=== PATIENT | female | born 1955 | race Caucasian/White ===

== ENCOUNTER 2018-02-17 15:01 | Inpatient (IN) | payer MEDICARE, OTHER ==
--- NOTE | 2018-02-17 16:34 | PDOC ---
History of Present Illness <Apurva Cantu - Last Filed: 02/17/18 17:50> - General History Source: Family (Pt is persian speaking ) - History of Present Illness Initial Comments: Pt is Mongolian speaking. Hx obtained from pt and daughter. 62 y/o F w/ PMH of IDDM, HTN, HLD, and s/p R lateral foot wound debridment on 2017, p/w worsening pain, rash, and swelling in R leg x1wk. Pain starts below the knee and radiates down to the foot. Pain and rash have grown in size since 1 wk ago. Pt tried putting on a cream (does not remember name) that she received from her quill machine operator when she was seen 2 mo ago for the wound debridment but it did not help. Pt denies any fever, discharge from the leg, itchiness, SOB, CP, abd pain, n/v/d , recent travel, bug bites, or prolonged immobilization. Pt lives in [place] at daughter home and ambulates on her own w/o assistance, but is somewhat unsteady on her feet. Pt deneis any smoke, etoh, or IV drug use. FH: dad had stroke at 75 yo. mom has HTN and Alzheimer 02/17/18 16:22 02/17/18 16:44 Timing/Duration: 1 week Associated Symptoms: reports: rash <Humberto Estrada - Last Filed: 02/17/18 18:01> - General Chief Complaint: Wound Stated Complaint: SWOLLEN LEG Time Seen by Provider: 02/17/18 15:35 Past History <Apurva Cantu - Last Filed: 02/17/18 17:50> - Travel Traveled outside of the country in the last 30 days: No - Past Medical History Cardiac Disorders: Yes COPD: No Diabetes: Yes (on insulin) HTN: Yes Comment:: 02/17/18 16:52 Has cataracts b/l and will be going for surgery soon to remove them. In the past was told she had "fast heart beat" - Suicide/Smoking/Psychosocial Hx Smoking History: Never smoked Hx Alcohol Use: No Drug/Substance Use Hx: No <Humberto Estrada - Last Filed: 02/17/18 18:01> - Past Medical History Allergies/Adverse Reactions: Allergies Allergy/AdvReac Type Severity Reaction Status Date / Time No Known Allergies Allergy Verified 02/17/18 15:13 Home Medications: Ambulatory Orders Amlodipine Besylate 5 mg PO HS 02/17/18 Amlodipine Besylate 10 mg PO AM 02/17/18 Atorvastatin Ca [Lipitor] 40 mg PO HS 02/17/18 Gabapentin 300 mg PO DAILY 02/17/18 Insulin Aspart Prot/Insuln Asp [Novolog Mix 70-30 Flexpen Syrn] 26 unit SQ HS Insulin Aspart Prot/Insuln Asp [Novolog Mix 70-30 Flexpen Syrn] 40 unit SQ AM Losartan Potassium 100 mg PO DAILY 02/17/18 Sitagliptin Phosphate [Januvia] 100 mg PO DAILY 02/17/18 metFORMIN HCL [Metformin HCl] 500 mg PO DAILY 02/17/18 *Physical Exam - Vital Signs Last Vital Signs Temp Pulse Resp BP Pulse Ox 98.3 F 96 H 16 176/80 H 97 02/17/18 17:35 02/17/18 16:37 02/17/18 16:37 02/17/18 16:37 02/17/18 15:13 <Apurva Cantu - Last Filed: 02/17/18 17:50> - Vital Signs Last Vital Signs Temp Pulse Resp BP Pulse Ox 99.5 F 97 H 16 190/80 H 97 02/17/18 15:13 02/17/18 15:13 02/17/18 15:13 02/17/18 15:13 02/17/18 15:13 - Physical Exam Comments: 02/17/18 16:38 General: NAD HEENT: NCAT PERRL MMM, EOMI Chest: Mild basilar crackles b/l Cardio: RRR S1 S2 no m/r/g Abd: soft NTND EXT: radial and DP pulses 2+ b/l. RLE - 5x5cm rash/cellulitis on lateral RLE; mild swelling, indurated warm and TTP. no purulence or fluctuance noted. Healing stage 2/3 DM foot ulcer on R lateral foot, no drainage or erythema noted. Stage 1 ulcer near medial malleolus. LLE is grossly intact and somewhat cool to touch. No edema Neuro: AOx3. decreased sensation in feet b/l. strength grossly intact 02/17/18 17:20 02/17/18 17:27 <Humberto Estrada - Last Filed: 02/17/18 18:01> ED Treatment Course - LABORATORY CBC & Chemistry Diagram: 02/17/18 17:23 02/17/18 17:23 - ADDITIONAL ORDERS Additional order review: 02/17/18 17:23 RBC 4.13 MCV 85.4 MCHC 32.5 RDW 14.2 MPV 9.4 Neutrophils % 67.9 Lymphocytes % 22.8 Monocytes % 5.4 Eosinophils % 3.2 Basophils % 0.7 - RADIOLOGY Radiology Studies Ordered: Category Date Time Status CHEST X-RAY PORTABLE* [RAD] Stat Radiology 02/17/18 16:55 Ordered - Medications Given in the ED: ED Medications Discontinued Medications Generic Name Dose Route Start Last Admin Trade Name Freq PRN Reason Stop Dose Admin Piperacillin Sod/Tazobactam 100 mls @ 200 mls/hr 02/17/18 16:57 02/17/18 17: 22 Sod 4.5 gm/ Dextrose IVPB 02/17/18 17:26 200 mls/hr ONCE ONE Administration Protocol <Apurva Cantu - Last Filed: 02/17/18 17:50> - LABORATORY CBC & Chemistry Diagram: 02/17/18 17:23 02/17/18 17:23 <Humberto Estrada - Last Filed: 02/17/18 18:01> Medical Decision Making - Medical Decision Making 02/17/18 17:09 62 y/o F w/ PMH of IDDM, HTN, HLD, and s/p R lateral foot wound debridment on 2017, p/w worsening pain, rash, and swelling in R leg x1wk. cellulitis - Pt is DM w/ hx of recent DM R lateral foot wound debridment. also consider osteomyelitis vs DVT -IVF -IV abx zosyn/vanc for broad coverage -cbc, cmp, lactic, coag -Duplex r/o DVT -RLE and foot X-ray to r/o osteo -ID consult -Blood and wound cx HTN - 190/80....170s/80s -pt reports taking home BP meds 1 hour ago, will monitor BP Admit to inpatient for IV abx for LE cellulitis, chronic wound infection. 02/17/18 17:10 02/17/18 17:19 02/17/18 18:00 <Humberto Estrada - Last Filed: 02/17/18 18:01> *DC/Admit/Observation/Transfer - Discharge Dispostion Decision to Admit order: Yes Decision to Admit order Date/Time: Decision to Admit Order Category Date Time Status Decision to Admit to Hospital Routine Admission 02/17/18 16:57 Active <Apurva Cantu - Last Filed: 02/17/18 17:50> <Humberto Estrada - Last Filed: 02/17/18 18:01> Diagnosis at time of Disposition: Cellulitis of right lower leg - Discharge Dispostion Condition at time of disposition: Guarded - Referrals Referrals: Lyubov Boyd MD [Primary Care Provider] - - Patient Instructions - Post Discharge Activity
[2018-02-17] MEDS ORDERED: SODIUM CHLORIDE 1,000 ML IV STA (16:55)
[2018-02-17] MEDS ORDERED: VANCOMYCIN 1,500 MG in DEXTROSE 5%-WATER - 250 ML IVPB ONE (16:56)
[2018-02-17] MEDS ORDERED: PIPERACILLIN/TAZOB 4.5 GM 4.5 GM in DEXTROSE 5%-WATER 100 ML IVPB ONE (16:57)
--- NOTE | 2018-02-17 16:58 | PDOC ---
Attending Attestation - Resident Resident Name: NatalieHumberto - ED Attending Attestation I have performed the following: I have examined & evaluated the patient, The case was reviewed & discussed with the resident, I agree w/resident's findings & plan - HPI HPI: 02/17/18 18:46 Kev Salazar 62 YOF 62 y/o F w/ PMH of IDDM, HTN, HLD, and s/p R lateral foot wound debridement on 10/2017, p/w worsening pain, rash, warmth and swelling in R leg x1wk, no fevers. denies fall or trauma or bites. - Physicial Exam PE: 02/17/18 18:44 General: Well appearing, awake and alert, NAD. HEENT: NCAT, PERRL, EOMI, clear conjunctiva, anicteric, moist mucus membranes, clear oropharynx, no oral lesions.. Neck: neck supple, FROM Resp: CTAB, normal and even respirations, no respiratory distress CVS: RRR, no murmurs, 2+ peripheral pulses throughout, no peripheral edema Abdomen: soft, NTND, no peritoneal signs. Back: nontender, normal inspection and ROM MSK: (+)Right calf tenderness. COELHO x4, ROM intact. No clubbing or cyanosis. normal bulk and tone. Neuro: alert, oriented appropriately; no focal neurologic deficits. SILT, 5/5 distal and prox strength in all extrem. Skin: (+)Old healed scar/callous to right lateral foot, old scar to the right medial malleolus, focal area of erythema, warmth, and tenderness to the lateral aspect of the RLE. Cap refill <2 sec - Medical Decision Making 02/17/18 16:58 Kev Martin 62 YOF 62 y/o F w/ PMH of IDDM, HTN, HLD, and s/p R lateral foot wound debridement on 10/2017, p/w worsening pain, rash, warmth and swelling in R leg x1wk, no fevers. denies fall or trauma or bites. vitals with HR in 90s, mildly hypertensive. likely from pain. afebrile rectally. DDx osteomyelitis, cellulitis, bacteremia, chronic wound infection. High risk with chronic wound and comorbidities, diabetes. IV abx with zosyn/ vancomycin for broad coverage, IV fluids. Blood cultures obtained. no active wound drainage.. XR foot/leg to r/o osteomyelitis. Neg DVT study Labs and lytes_ wnl. lactate normal given analgesia, PO tylenol Admit for IV abx for LE cellulitis, chronic wound infection, with multiple comorbidities including poor healing and ulcer/Diabetes mellitus. d/w pt and family, made aware of impression and plan. admit to Dr. Marlow service 02/17/18 18:47 Heart Score/ECG Review - ECG Impressions Comment:: 02/17/18 17:49 EKG normal sinus rhythm, no interval abnormalities, narrow QRS, ST and T wave segments and morphology normal. Nonspecific T wave abnormalities
[2018-02-17] MEDS ORDERED: VANCOMYCIN 1 GRAM (PRE-DOCKED) 1,000 MG/250 ML BAG IVPB ONE (17:19)
[2018-02-17] MEDS ORDERED: PIPERACILLIN/TAZOB 4.5 GM 4.5 GM/100 ML BAG IVPB ONE (17:19)
[2018-02-17 17:38] LABS: BASO % 0.7 % (0-2.0); EOS % 3.2 % (0-4.5); HEMATOCRIT 35.2 % (32.4-45.2); HEMOGLOBIN 11.4 GM/dL (10.7-15.3); LYMPH % 22.8 % (8-40); MCH 27.7 pg (25.7-33.7); MCHC 32.5 g/dl (32.0-36.0); MEAN CELL VOLUME 85.4 fl (80-96); MEAN PLT VOLUME 9.4 fl (7.5-11.1); MONO % 5.4 % (3.8-10.2); NEUT % 67.9 % (42.8-82.8); PLATELET COUNT 260 K/MM3 (134-434); RBC 4.13 M/mm3 (3.60-5.2); RDW 14.2 % (11.6-15.6); WHITE BLOOD COUNT 7.3 K/mm3 (4.0-10.0)
[2018-02-17] MEDS ORDERED: ACETAMINOPHEN 325 MG TABLET (FP) PO ONE (17:49)
[2018-02-17 17:53] LABS: INR 1.03 (0.83-1.09); PROTHROMBIN TIME (PATIENT) 11.6 SEC (9.7-13.0)
[2018-02-17 18:08] LABS: ALBUMIN 3.6 g/dl (3.4-5.0); ALK PHOS 94 U/L (45-117); ANION GAP 5 MMOL/L (8-16); BILIRUBIN,TOTAL 0.3 mg/dL (0.2-1); BLOOD UREA NITROGEN 21 mg/dL (7-18); CHLORIDE 100 mmol/L (98-107); CO2 31 mmol/L (21-32); CREATININE 1.1 mg/dL (0.55-1.3); GLUCOSE,RANDOM 211 mg/dL (74-106); POTASSIUM 4.4 mmol/L (3.5-5.1); SGOT/AST 15 U/L (15-37); SGPT/ALT 21 U/L (13-61); SODIUM 136 mmol/L (136-145)
[2018-02-17] MEDS ORDERED: ACETAMINOPHEN 325 MG TABLET (FP) ONE (19:08)
--- NOTE | 2018-02-17 20:15 | HP ---
Admitting History and Physical - Primary Care Physician PCP: Cralee Marlow - Admission History of Present Illness: Pt is Slovak speaking. Hx obtained from pt and daughter. 62 y/o F w/ PMH of IDDM, HTN, HLD, and s/p R lateral foot wound debridment on 2017, p/w worsening pain, rash, and swelling in R leg x1wk. Pain starts below the knee and radiates down to the foot. Pain and rash have grown in size since 1 wk ago. Pt tried putting on a cream (does not remember name) that she received from her regulatory auditor when she was seen 2 mo ago for the wound debridment but it did not help. - Past Medical History Cardiovascular: Yes: HTN, Hyperlipdemia Endocrine: Yes: Diabetes Mellitus - Smoking History Smoking history: Never smoked - Alcohol/Substance Use Hx Alcohol Use: No Home Medications - Allergies Allergies/Adverse Reactions: Allergies Allergy/AdvReac Type Severity Reaction Status Date / Time No Known Allergies Allergy Verified 02/17/18 15:13 - Home Medications Home Medications: Ambulatory Orders Amlodipine Besylate 5 mg PO HS 02/17/18 Amlodipine Besylate 10 mg PO AM 02/17/18 Atorvastatin Ca [Lipitor] 40 mg PO HS 02/17/18 Gabapentin 300 mg PO DAILY 02/17/18 Insulin Aspart Prot/Insuln Asp [Novolog Mix 70-30 Flexpen Syrn] 26 unit SQ HS Insulin Aspart Prot/Insuln Asp [Novolog Mix 70-30 Flexpen Syrn] 40 unit SQ AM Losartan Potassium 100 mg PO DAILY 02/17/18 Sitagliptin Phosphate [Januvia] 100 mg PO DAILY 02/17/18 metFORMIN HCL [Metformin HCl] 500 mg PO DAILY 02/17/18 Physical Examination Vital Signs: Vital Signs Temperature 98.7 F 02/17/18 20:08 Pulse Rate 94 H 02/17/18 20:08 Respiratory Rate 17 02/17/18 20:08 Blood Pressure 157/68 02/17/18 20:08 O2 Sat by Pulse Oximetry (%) 99 02/17/18 20:08 Constitutional: Yes: No Distress HENT: Yes: Atraumatic Neck: Yes: Supple Cardiovascular: Yes: Regular Rate and Rhythm Respiratory: Yes: CTA Bilaterally Gastrointestinal: Yes: Normal Bowel Sounds Extremities: Yes: Other (R clive cellulitis) Edema: Yes Edema: RLE: Trace Peripheral Pulses WNL: Yes Neurological: Yes: Alert, Oriented Labs: CBC, BMP 02/17/18 17:23 02/17/18 17:23 Problem List - Problems (1) Cellulitis of right lower leg Assessment/Plan: iv abx id on board prn pain meds Code(s): L03.115 - CELLULITIS OF RIGHT LOWER LIMB (2) HTN (hypertension) Assessment/Plan: on meds stable Code(s): I10 - ESSENTIAL (PRIMARY) HYPERTENSION (3) HLD (hyperlipidemia) Assessment/Plan: on meds stable Code(s): E78.5 - HYPERLIPIDEMIA, UNSPECIFIED (4) Diabetes Assessment/Plan: on meds bgms Code(s): E11.9 - TYPE 2 DIABETES MELLITUS WITHOUT COMPLICATIONS Assessment/Plan Laboratory Tests 02/17/18 02/17/18 02/17/18 17:23 17:23 17:23 WBC 7.3 RBC 4.13 Hgb 11.4 Hct 35.2 MCV 85.4 MCH 27.7 MCHC 32.5 RDW 14.2 Plt Count 260 MPV 9.4 Absolute Neuts (auto) 5.0 Neutrophils % 67.9 Lymphocytes % 22.8 Monocytes % 5.4 Eosinophils % 3.2 Basophils % 0.7 Nucleated RBC % 0 PT with INR 11.60 INR 1.03 Sodium 136 Potassium 4.4 Chloride 100 Carbon Dioxide 31 Anion Gap 5 L BUN 21 H Creatinine 1.1 Creat Clearance w eGFR 50.01 Random Glucose 211 H Lactic Acid Calcium 10.0 Total Bilirubin 0.3 AST 15 ALT 21 Alkaline Phosphatase 94 Total Protein 8.0 Albumin 3.6 Blood Type Antibody Screen 02/17/18 02/17/18 17:23 17:23 WBC RBC Hgb Hct MCV MCH MCHC RDW Plt Count MPV Absolute Neuts (auto) Neutrophils % Lymphocytes % Monocytes % Eosinophils % Basophils % Nucleated RBC % PT with INR INR Sodium Potassium Chloride Carbon Dioxide Anion Gap BUN Creatinine Creat Clearance w eGFR Random Glucose Lactic Acid 1.3 Calcium Total Bilirubin AST ALT Alkaline Phosphatase Total Protein Albumin Blood Type O POSITIVE Antibody Screen Negative Active Medications Generic Name Dose Route Start Last Admin Trade Name Freq PRN Reason Stop Dose Admin Amlodipine Besylate 5 mg 02/17/18 22:00 Norvasc - PO HS JOVANA Atorvastatin Calcium 40 mg 02/17/18 22:00 Lipitor - PO HS [facility] Gabapentin 300 mg 02/18/18 10:00 Neurontin - PO DAILY [facility] Insulin Aspart 1 vial 02/17/18 22:00 Novolog Vial Sliding Scale - SQ ACHS [facility] Protocol Non-Formulary Medication 26 unit 02/17/18 22:00 Insulin Aspart Prot/Insuln Asp [Novolog Mix 70-30 Flexpen Syrn] SQ HS [facility] Non-Formulary Medication 40 unit 02/18/18 07:00 Insulin Aspart Prot/Insuln Asp [Novolog Mix 70-30 Flexpen Syrn] SQ AM [facility] Non-Formulary Medication 100 mg 02/18/18 10:00 Losartan Potassium [Losartan Potassium] PO DAILY JOVANA
[2018-02-17] MEDS: INSULIN SLIDING SCALE (NOVOLOG) 1 VIAL SQ SCH (22:10)
[2018-02-17] MEDS: ATORVASTATIN CA 40 MG TABLET (FP) PO SCH (22:14)
[2018-02-17] MEDS: amLODIPine BESYLATE 5 MG TABLET (FP) PO SCH (22:14)
[2018-02-17] MEDS: INSULIN (NOVOLOG MIX 70/30) 100 UNITS/ML MDV SQ SCH (22:50)
[2018-02-18] MEDS ORDERED: PNEUMOC 13-VAL CONJ-DIP CRM/PF 0.5 ML DISP.SYRIN IM ONE (00:04)
[2018-02-18] MEDS: metFORMIN HCL 500 MG TABLET (FP) PO SCH (06:35)
[2018-02-18] MEDS: sitaGLIPtin PHOSPHATE 100 MG TABLET (FP) PO SCH (06:35)
[2018-02-18] MEDS: INSULIN SLIDING SCALE (NOVOLOG) 1 VIAL SQ SCH ×4 (06:36→21:27)
[2018-02-18] MEDS: INSULIN (NOVOLOG MIX 70/30) 100 UNITS/ML MDV SQ SCH ×2 (06:38→21:27)
--- NOTE | 2018-02-18 09:35 | EKG ---
Test Reason : Blood Pressure : / mmHG Vent. Rate : 093 BPM Atrial Rate : 093 BPM P-R Int : 160 ms QRS Dur : 074 ms QT Int : 362 ms P-R-T Axes : 053 012 040 degrees QTc Int : 450 ms NORMAL SINUS RHYTHM WITH SINUS ARRHYTHMIA NORMAL ECG NO PREVIOUS ECGS AVAILABLE Confirmed by DELIA MILLIGAN MD ([id number]) on 02/18/2018 9:35:27 AM Referred By: Confirmed By:DELIA MILLIGAN MD
[2018-02-18] MEDS ORDERED: PNEUMOCOCCAL 23 VACCINE 0.5 ML VIAL IM ONE (10:00)
[2018-02-18] MEDS: LOSARTAN POTASSIUM 50 MG TABLET (FP) PO SCH (10:00)
[2018-02-18] MEDS: GABAPENTIN 300 MG CAPSULE (FP) PO SCH (10:00)
[2018-02-18] MEDS ORDERED: FLU VACCINE QUAD 60 MCG/0.5 ML (MDV 18-19) IM ONE (10:00)
[2018-02-18] MEDS ORDERED: CLINDAMYCIN 300 MG PREMIX IVPB 300 MG/50 ML BAG IVPB SCH (16:00)
[2018-02-18] MEDS ORDERED: oxyCODONE HCL 5 MG TABLET PO PRN (16:42)
[2018-02-18] MEDS ORDERED: ACETAMINOPHEN 325 MG TABLET (FP) PO PRN (16:42)
--- NOTE | 2018-02-18 16:48 | PN ---
Progress Note, Physician History of Present Illness: feeling good - Current Medication List Current Medications: Active Medications Acetaminophen (Tylenol -) 650 mg PO Q6H PRN PRN Reason: FEVER Amlodipine Besylate (Norvasc -) 5 mg PO HS [facility] Last Admin: 02/17/18 22:14 Dose: 5 mg Atorvastatin Calcium (Lipitor -) 40 mg PO HS [facility] Last Admin: 02/17/18 22:14 Dose: 40 mg Gabapentin (Neurontin -) 300 mg PO DAILY [facility] Last Admin: 02/18/18 10:00 Dose: 300 mg Heparin Sodium (Porcine) (Heparin -) 5,000 unit SQ BID [facility] Clindamycin Phosphate (Cleocin 300 Mg Premix Ivpb) 300 mg in 50 mls @ 100 mls/ hr IVPB Q8H-IV [facility]; Protocol Insulin Aspart (Novolog Mix 70/30 Vial) 26 units SQ HS [facility] Last Admin: 02/17/18 22:50 Dose: 26 units Insulin Aspart (Novolog Mix 70/30 Vial) 40 units SQ AM [facility] Last Admin: 02/18/18 06:38 Dose: 40 units Insulin Aspart (Novolog Vial Sliding Scale -) 1 vial SQ ACHS [facility]; Protocol Last Admin: 02/18/18 10:54 Dose: Not Given Losartan Potassium (Cozaar -) 100 mg PO DAILY [facility] Last Admin: 02/18/18 10:00 Dose: 100 mg Metformin HCl (Glucophage -) 500 mg PO DAILY@0700 [facility] Last Admin: 02/18/18 06:35 Dose: 500 mg Oxycodone HCl (Roxicodone -) 10 mg PO Q6H PRN PRN Reason: PAIN LEVEL 4 - 6 Sitagliptin Phosphate (Januvia -) 100 mg PO DAILY@0700 [facility] Last Admin: 02/18/18 06:35 Dose: 100 mg - Objective Vital Signs: Vital Signs Temperature 99.0 F 02/18/18 09:00 Pulse Rate 97 H 02/18/18 09:00 Respiratory Rate 18 02/18/18 09:00 Blood Pressure 130/56 L 02/18/18 09:00 O2 Sat by Pulse Oximetry (%) 99 02/17/18 20:08 Constitutional: Yes: No Distress HENT: Yes: Atraumatic Neck: Yes: Supple Cardiovascular: Yes: Regular Rate and Rhythm Respiratory: Yes: CTA Bilaterally Gastrointestinal: Yes: Normal Bowel Sounds Extremities: Yes: Other (rlex cellulitis..improving) Neurological: Yes: Alert, Oriented Labs: CBC, BMP 02/17/18 17:23 02/17/18 17:23 INR, PTT INR 1.03 (0.83-1.09) 02/17/18 17:23 Problem List - Problems (1) Cellulitis of right lower leg Assessment/Plan: iv abx id on board prn pain meds Code(s): L03.115 - CELLULITIS OF RIGHT LOWER LIMB (2) HTN (hypertension) Assessment/Plan: on meds stable Code(s): I10 - ESSENTIAL (PRIMARY) HYPERTENSION (3) HLD (hyperlipidemia) Assessment/Plan: on meds stable Code(s): E78.5 - HYPERLIPIDEMIA, UNSPECIFIED (4) Diabetes Assessment/Plan: on meds bgms Code(s): E11.9 - TYPE 2 DIABETES MELLITUS WITHOUT COMPLICATIONS
[2018-02-18] MEDS ORDERED: INSULIN (NOVOLOG) ASPART 100 UNITS/ML 10ML VIAL ONE (16:52)
[2018-02-18] MEDS: CLINDAMYCIN 300 MG PREMIX IVPB 300 MG/50 ML BAG IVPB SCH (17:01)
[2018-02-18] MEDS ORDERED: PT OWN MED DRAWER 7, Y5N ONE (17:28)
[2018-02-18] MEDS: HEPARIN NA (PORCINE) 5,000 UNITS/ML 1ML VIAL SQ SCH (21:21)
[2018-02-18] MEDS: ATORVASTATIN CA 40 MG TABLET (FP) PO SCH (21:21)
[2018-02-18] MEDS: amLODIPine BESYLATE 5 MG TABLET (FP) PO SCH (21:21)
[2018-02-19] MEDS: CLINDAMYCIN 300 MG PREMIX IVPB 300 MG/50 ML BAG IVPB SCH ×3 (01:31→17:28)
[2018-02-19] MEDS: sitaGLIPtin PHOSPHATE 100 MG TABLET (FP) PO SCH (06:35)
[2018-02-19] MEDS: INSULIN (NOVOLOG MIX 70/30) 100 UNITS/ML MDV SQ SCH ×2 (06:35→21:35)
[2018-02-19] MEDS: metFORMIN HCL 500 MG TABLET (FP) PO SCH (06:35)
[2018-02-19] MEDS: INSULIN SLIDING SCALE (NOVOLOG) 1 VIAL SQ SCH ×4 (06:36→21:34)
[2018-02-19] MEDS ORDERED: INSULIN (NOVOLOG) ASPART 100 UNITS/ML 10ML VIAL ONE ×3 (06:41→18:57)
[2018-02-19] MEDS: HEPARIN NA (PORCINE) 5,000 UNITS/ML 1ML VIAL SQ SCH ×2 (10:40→21:35)
[2018-02-19] MEDS: GABAPENTIN 300 MG CAPSULE (FP) PO SCH (10:40)
[2018-02-19] MEDS: LOSARTAN POTASSIUM 50 MG TABLET (FP) PO SCH (10:40)
[2018-02-19] MEDS ORDERED: PT OWN MED DRAWER 7, Y5N ONE (17:25)
--- NOTE | 2018-02-19 18:49 | PN ---
Progress Note, Physician History of Present Illness: feeling good - Current Medication List Current Medications: Active Medications Acetaminophen (Tylenol -) 650 mg PO Q6H PRN PRN Reason: FEVER Amlodipine Besylate (Norvasc -) 5 mg PO HS [facility] Last Admin: 02/18/18 21:21 Dose: 5 mg Atorvastatin Calcium (Lipitor -) 40 mg PO HS [facility] Last Admin: 02/18/18 21:21 Dose: 40 mg Gabapentin (Neurontin -) 300 mg PO DAILY [facility] Last Admin: 02/19/18 10:40 Dose: 300 mg Heparin Sodium (Porcine) (Heparin -) 5,000 unit SQ BID [facility] Last Admin: 02/19/18 10:40 Dose: 5,000 unit Clindamycin Phosphate (Cleocin 300 Mg Premix Ivpb) 300 mg in 50 mls @ 100 mls/ hr IVPB Q8H-IV [facility]; Protocol Last Admin: 02/19/18 17:28 Dose: 100 mls/hr Insulin Aspart (Novolog Mix 70/30 Vial) 26 units SQ HS [facility] Last Admin: 02/18/18 21:27 Dose: Not Given Insulin Aspart (Novolog Mix 70/30 Vial) 40 units SQ AM [facility] Last Admin: 02/19/18 06:35 Dose: 40 units Insulin Aspart (Novolog Vial Sliding Scale -) 1 vial SQ ACHS [facility]; Protocol Last Admin: 02/19/18 17:27 Dose: 10 units Losartan Potassium (Cozaar -) 100 mg PO DAILY [facility] Last Admin: 02/19/18 10:40 Dose: 100 mg Metformin HCl (Glucophage -) 500 mg PO DAILY@0700 [facility] Last Admin: 02/19/18 06:35 Dose: 500 mg Oxycodone HCl (Roxicodone -) 10 mg PO Q6H PRN PRN Reason: PAIN LEVEL 4 - 6 Last Admin: 02/18/18 16:57 Dose: 10 mg Sitagliptin Phosphate (Januvia -) 100 mg PO DAILY@0700 [facility] Last Admin: 02/19/18 06:35 Dose: 100 mg - Objective Vital Signs: Vital Signs Temperature 98.7 F 02/19/18 06:00 Pulse Rate 95 H 02/19/18 06:00 Respiratory Rate 20 02/19/18 06:00 Blood Pressure 143/62 02/19/18 06:00 O2 Sat by Pulse Oximetry (%) 99 02/17/18 20:08 HENT: Yes: Atraumatic Neck: Yes: Supple Cardiovascular: Yes: Regular Rate and Rhythm Respiratory: Yes: CTA Bilaterally Gastrointestinal: Yes: Normal Bowel Sounds Extremities: Yes: Other (rle cellulitis resolving) Edema: Yes Edema: RLE: Trace Peripheral Pulses WNL: Yes Neurological: Yes: Alert, Oriented Labs: CBC, BMP 02/17/18 17:23 02/17/18 17:23 INR, PTT INR 1.03 (0.83-1.09) 02/17/18 17:23 Problem List - Problems (1) Cellulitis of right lower leg Assessment/Plan: iv abx id on board..need to know when to switch to po prn pain meds Code(s): L03.115 - CELLULITIS OF RIGHT LOWER LIMB (2) HTN (hypertension) Assessment/Plan: on meds stable Code(s): I10 - ESSENTIAL (PRIMARY) HYPERTENSION (3) HLD (hyperlipidemia) Assessment/Plan: on meds stable Code(s): E78.5 - HYPERLIPIDEMIA, UNSPECIFIED (4) Diabetes Assessment/Plan: on meds bgms Code(s): E11.9 - TYPE 2 DIABETES MELLITUS WITHOUT COMPLICATIONS
[2018-02-19] MEDS: amLODIPine BESYLATE 5 MG TABLET (FP) PO SCH (21:35)
[2018-02-19] MEDS: ATORVASTATIN CA 40 MG TABLET (FP) PO SCH (21:35)
[2018-02-20] MEDS ORDERED: PT OWN MED DRAWER 7, Y5N ONE ×2 (02:31→09:20)
[2018-02-20] MEDS: CLINDAMYCIN 300 MG PREMIX IVPB 300 MG/50 ML BAG IVPB SCH ×3 (02:36→17:25)
--- NOTE | 2018-02-20 05:48 | CON.ID ---
Consult Consult Specialty:: infectious diseases Referred by:: Reason for Consultation:: cellulitis of the right with boils - History of Present Illness Chief Complaint: pain and swelling of the right leg and redness History of Present Illness: Pt is Brazilian speaking. Hx obtained from pt and daughter. 62 y/o F w/ PMH of IDDM, HTN, HLD, and s/p R lateral foot wound debridment on 2017, p/w worsening pain, rash, and swelling in R leg x1wk. Pain starts below the knee and radiates down to the foot. Pain and rash have grown in size since 1 wk ago. Pt tried putting on a cream (does not remember name) that she received from her hotel director when she was seen 2 mo ago for the wound debridment but it did not help. - History Source History Provided By: Patient, Family Member Limitations to Obtaining History: Language Barrier - Past Medical History Cardio/Vascular: Yes: HTN, Hyperlipdemia Endocrine: Yes: Diabetes Mellitus - Alcohol/Substance Use Hx Alcohol Use: No - Smoking History Smoking history: Never smoked Have you smoked in the past 12 months: No Home Medications - Allergies Allergies/Adverse Reactions: Allergies Allergy/AdvReac Type Severity Reaction Status Date / Time No Known Allergies Allergy Verified 02/17/18 15:13 - Home Medications Home Medications: Ambulatory Orders Amlodipine Besylate 5 mg PO HS 02/17/18 Amlodipine Besylate 10 mg PO AM 02/17/18 Atorvastatin Ca [Lipitor] 40 mg PO HS 02/17/18 Gabapentin 300 mg PO DAILY 02/17/18 Insulin Aspart Prot/Insuln Asp [Novolog Mix 70-30 Flexpen Syrn] 26 unit SQ HS Insulin Aspart Prot/Insuln Asp [Novolog Mix 70-30 Flexpen Syrn] 40 unit SQ AM Losartan Potassium 100 mg PO DAILY 02/17/18 Sitagliptin Phosphate [Januvia] 100 mg PO DAILY 02/17/18 metFORMIN HCL [Metformin HCl] 500 mg PO DAILY 02/17/18 Review of Systems - Review of Systems Constitutional: reports: No Symptoms Eyes: reports: No Symptoms HENT: reports: No Symptoms Neck: reports: No Symptoms Cardiovascular: reports: No Symptoms Respiratory: reports: No Symptoms Gastrointestinal: reports: No Symptoms Genitourinary: reports: No Symptoms Musculoskeletal: reports: Other Integumentary: reports: Change in Color, Erythema, Other (wound/boil) Neurological: reports: No Symptoms Endocrine: reports: No Symptoms Hematology/Lymphatic: reports: No Symptoms Psychiatric: reports: No Symptoms Physical Exam Vital Signs: Vital Signs Temperature 98.7 F 02/19/18 18:00 Pulse Rate 100 H 02/19/18 18:00 Respiratory Rate 20 02/19/18 18:00 Blood Pressure 157/85 02/19/18 18:00 O2 Sat by Pulse Oximetry (%) 99 02/17/18 20:08 Constitutional: Yes: No Distress, Calm Eyes: Yes: Conjunctiva Clear Neck: Yes: Supple, Trachea Midline Cardiovascular: Yes: Regular Rate and Rhythm Respiratory: Yes: Regular, CTA Bilaterally Gastrointestinal: Yes: Normal Bowel Sounds, Soft Musculoskeletal: Yes: WNL Extremities: Yes: Other (rt leg cellulitis with boil) Wound/Incision: Yes: Open to air Neurological: Yes: Alert, Oriented Labs: CBC, BMP 02/17/18 17:23 02/19/18 21:40 Imaging - Results Chest X-ray: Report Reviewed, Image Reviewed X-ray: Report Reviewed, Image Reviewed Assessment/Plan Problem List - Problems (1) Cellulitis of right lower leg Code(s): L03.115 - CELLULITIS OF RIGHT LOWER LIMB (2) HTN (hypertension) Code(s): I10 - ESSENTIAL (PRIMARY) HYPERTENSION (3) HLD (hyperlipidemia) Code(s): E78.5 - HYPERLIPIDEMIA, UNSPECIFIED 4 r/o mrsa of the leg wound plan will start patient on clinda await for cx reports rest as per the team
--- NOTE | 2018-02-20 05:55 | PN ---
Progress Note, Physician History of Present Illness: patient doing well no complaints still awaiting results of cx - Current Medication List Current Medications: Active Medications Acetaminophen (Tylenol -) 650 mg PO Q6H PRN PRN Reason: FEVER Amlodipine Besylate (Norvasc -) 5 mg PO HS [facility] Last Admin: 02/19/18 21:35 Dose: 5 mg Atorvastatin Calcium (Lipitor -) 40 mg PO HS [facility] Last Admin: 02/19/18 21:35 Dose: 40 mg Gabapentin (Neurontin -) 300 mg PO DAILY [facility] Last Admin: 02/19/18 10:40 Dose: 300 mg Heparin Sodium (Porcine) (Heparin -) 5,000 unit SQ BID [facility] Last Admin: 02/19/18 21:35 Dose: 5,000 unit Clindamycin Phosphate (Cleocin 300 Mg Premix Ivpb) 300 mg in 50 mls @ 100 mls/ hr IVPB Q8H-IV [facility]; Protocol Last Admin: 02/20/18 02:36 Dose: 100 mls/hr Insulin Aspart (Novolog Mix 70/30 Vial) 26 units SQ HS [facility] Last Admin: 02/19/18 21:35 Dose: 26 units Insulin Aspart (Novolog Mix 70/30 Vial) 40 units SQ AM [facility] Last Admin: 02/19/18 06:35 Dose: 40 units Insulin Aspart (Novolog Vial Sliding Scale -) 1 vial SQ ACHS [facility]; Protocol Last Admin: 02/19/18 21:34 Dose: 14 units Losartan Potassium (Cozaar -) 100 mg PO DAILY [facility] Last Admin: 02/19/18 10:40 Dose: 100 mg Metformin HCl (Glucophage -) 500 mg PO DAILY@0700 [facility] Last Admin: 02/19/18 06:35 Dose: 500 mg Oxycodone HCl (Roxicodone -) 10 mg PO Q6H PRN PRN Reason: PAIN LEVEL 4 - 6 Last Admin: 02/18/18 16:57 Dose: 10 mg Sitagliptin Phosphate (Januvia -) 100 mg PO DAILY@0700 [facility] Last Admin: 02/19/18 06:35 Dose: 100 mg - Objective Vital Signs: Vital Signs Temperature 98.7 F 02/20/18 05:51 Pulse Rate 93 H 02/20/18 05:51 Respiratory Rate 20 02/20/18 05:51 Blood Pressure 157/75 02/20/18 05:51 O2 Sat by Pulse Oximetry (%) 99 02/17/18 20:08 Constitutional: Yes: No Distress, Calm Cardiovascular: Yes: Regular Rate and Rhythm Respiratory: Yes: Regular, CTA Bilaterally Gastrointestinal: Yes: Normal Bowel Sounds, Soft Musculoskeletal: Yes: WNL Extremities: Yes: Other Integumentary: Yes: Erythema (improving) Wound/Incision: Yes: Clean/Dry Psychiatric: Yes: Alert, Oriented Labs: CBC, BMP 02/17/18 17:23 02/19/18 21:40 INR, PTT INR 1.03 (0.83-1.09) 02/17/18 17:23 Assessment/Plan Problem List - Problems (1) Cellulitis of right lower leg Code(s): L03.115 - CELLULITIS OF RIGHT LOWER LIMB (2) HTN (hypertension) Code(s): I10 - ESSENTIAL (PRIMARY) HYPERTENSION (3) HLD (hyperlipidemia) Code(s): E78.5 - HYPERLIPIDEMIA, UNSPECIFIED 4 r/o mrsa of the leg wound plan continue clinda await for cx reports rest as per the team improving
[2018-02-20] MEDS: sitaGLIPtin PHOSPHATE 100 MG TABLET (FP) PO SCH (06:35)
[2018-02-20] MEDS: metFORMIN HCL 500 MG TABLET (FP) PO SCH (06:35)
[2018-02-20] MEDS: INSULIN SLIDING SCALE (NOVOLOG) 1 VIAL SQ SCH ×4 (06:40→21:48)
[2018-02-20] MEDS: INSULIN (NOVOLOG MIX 70/30) 100 UNITS/ML MDV SQ SCH ×2 (06:40→21:49)
[2018-02-20] MEDS ORDERED: INSULIN (NOVOLOG) ASPART 100 UNITS/ML 10ML VIAL ONE (06:44)
[2018-02-20] MEDS: HEPARIN NA (PORCINE) 5,000 UNITS/ML 1ML VIAL SQ SCH ×2 (09:32→21:48)
[2018-02-20] MEDS: LOSARTAN POTASSIUM 50 MG TABLET (FP) PO SCH (09:33)
[2018-02-20] MEDS: GABAPENTIN 300 MG CAPSULE (FP) PO SCH (09:33)
--- NOTE | 2018-02-20 14:22 | DS ---
Physical Examination Vital Signs: Vital Signs Temperature 98.7 F 02/20/18 08:00 Pulse Rate 93 H 02/20/18 08:00 Respiratory Rate 16 02/20/18 08:00 Blood Pressure 133/76 02/20/18 08:00 O2 Sat by Pulse Oximetry (%) 99 02/17/18 20:08 Labs: CBC, BMP 02/17/18 17:23 02/19/18 21:40 Discharge Summary Reason For Visit: CELLULITIS OF RIGHT LOWER LEG Current Active Problems Cellulitis of right lower leg (Acute) HLD (hyperlipidemia) (Acute) HTN (hypertension) (Acute) Condition: Guarded - Instructions Referrals: Lyubov Boyd MD [Primary Care Provider] - - Home Medications Comprehensive Discharge Medication List: Ambulatory Orders Amlodipine Besylate 5 mg PO HS 02/17/18 Amlodipine Besylate 10 mg PO AM 02/17/18 Atorvastatin Ca [Lipitor] 40 mg PO HS 02/17/18 Gabapentin 300 mg PO DAILY 02/17/18 Insulin Aspart Prot/Insuln Asp [Novolog Mix 70-30 Flexpen Syrn] 26 unit SQ HS Insulin Aspart Prot/Insuln Asp [Novolog Mix 70-30 Flexpen Syrn] 40 unit SQ AM Losartan Potassium 100 mg PO DAILY 02/17/18 Sitagliptin Phosphate [Januvia] 100 mg PO DAILY 02/17/18 metFORMIN HCL [Metformin HCl] 500 mg PO DAILY 02/17/18
[2018-02-20 15:18] LABS: BASO % 0.5 % (0-2.0); HEMATOCRIT 31.9 % (32.4-45.2); HEMOGLOBIN 10.5 GM/dL (10.7-15.3); LYMPH % 24.9 % (8-40); MCH 28.2 pg (25.7-33.7); MCHC 32.9 g/dl (32.0-36.0); MEAN CELL VOLUME 85.7 fl (80-96); MEAN PLT VOLUME 9.9 fl (7.5-11.1); MONO % 6.3 % (3.8-10.2); NEUT % 61.3 % (42.8-82.8); PLATELET COUNT 283 K/MM3 (134-434); RBC 3.73 M/mm3 (3.60-5.2); RDW 14.1 % (11.6-15.6); WHITE BLOOD COUNT 6.9 K/mm3 (4.0-10.0)
--- NOTE | 2018-02-20 15:51 | PN ---
Progress Note, Physician History of Present Illness: Pt states she feels well. Reports less Rt leg pain. Has no specific complaints. Daughter at bedside. - Current Medication List Current Medications: Active Medications Acetaminophen (Tylenol -) 650 mg PO Q6H PRN PRN Reason: FEVER Amlodipine Besylate (Norvasc -) 5 mg PO HS [facility] Last Admin: 02/19/18 21:35 Dose: 5 mg Atorvastatin Calcium (Lipitor -) 40 mg PO HS [facility] Last Admin: 02/19/18 21:35 Dose: 40 mg Gabapentin (Neurontin -) 300 mg PO DAILY [facility] Last Admin: 02/20/18 09:33 Dose: 300 mg Heparin Sodium (Porcine) (Heparin -) 5,000 unit SQ BID [facility] Last Admin: 02/20/18 09:32 Dose: 5,000 unit Clindamycin Phosphate (Cleocin 300 Mg Premix Ivpb) 300 mg in 50 mls @ 100 mls/ hr IVPB Q8H-IV [facility]; Protocol Last Admin: 02/20/18 09:33 Dose: 100 mls/hr Insulin Aspart (Novolog Mix 70/30 Vial) 26 units SQ HS [facility] Last Admin: 02/19/18 21:35 Dose: 26 units Insulin Aspart (Novolog Mix 70/30 Vial) 40 units SQ AM [facility] Last Admin: 02/20/18 06:40 Dose: 40 units Insulin Aspart (Novolog Vial Sliding Scale -) 1 vial SQ ACHS [facility]; Protocol Last Admin: 02/20/18 12:02 Dose: 2 units Losartan Potassium (Cozaar -) 100 mg PO DAILY [facility] Last Admin: 02/20/18 09:33 Dose: 100 mg Metformin HCl (Glucophage -) 500 mg PO DAILY@0700 [facility] Last Admin: 02/20/18 06:35 Dose: 500 mg Oxycodone HCl (Roxicodone -) 10 mg PO Q6H PRN PRN Reason: PAIN LEVEL 4 - 6 Last Admin: 02/18/18 16:57 Dose: 10 mg Sitagliptin Phosphate (Januvia -) 100 mg PO DAILY@0700 [facility] Last Admin: 02/20/18 06:35 Dose: 100 mg - Objective Vital Signs: Vital Signs Temperature 98.5 F 02/20/18 14:35 Pulse Rate 93 H 02/20/18 14:35 Respiratory Rate 16 02/20/18 14:35 Blood Pressure 143/72 02/20/18 14:35 O2 Sat by Pulse Oximetry (%) 99 02/17/18 20:08 Constitutional: Yes: No Distress, Calm Cardiovascular: Yes: Regular Rate and Rhythm Respiratory: Yes: Regular Gastrointestinal: Yes: Normal Bowel Sounds, Soft Musculoskeletal: Yes: WNL Extremities: Yes: Erythema (Rt leg erythema/mild induration, no fluctuance or drainage) Neurological: Yes: Alert, Oriented Labs: CBC, BMP 02/20/18 14:50 INR, PTT INR 1.03 (0.83-1.09) 02/17/18 17:23 Microbiology 02/17/18 06:40 Drainage (Swab) Gram Stain - Final 02/17/18 06:40 Drainage (Swab) Wound Culture - Preliminary Staphylococcus Epidermidis Presumptive Mrsa (Pbp2a Pos) 02/17/18 17:20 Blood - Peripheral Venous Blood Culture - Preliminary NO GROWTH OBTAINED AFTER 48 HOURS, INCUBATION TO CONTINUE FOR 3 DAYS. 02/17/18 17:23 Blood - Peripheral Venous Blood Culture - Preliminary NO GROWTH OBTAINED AFTER 48 HOURS, INCUBATION TO CONTINUE FOR 3 DAYS. Assessment/Plan Rt leg cellulitis -- wound culture results noted, +MRSA -- f/u susceptibility report, continue clindamycin for now prior to switch to oral antibiotics -- appears to be clinically improving
[2018-02-20 16:22] LABS: ALBUMIN 3.1 g/dl (3.4-5.0); ALK PHOS 87 U/L (45-117); ANION GAP 9 MMOL/L (8-16); BILIRUBIN,TOTAL 0.2 mg/dL (0.2-1); BLOOD UREA NITROGEN 24 mg/dL (7-18); CALCIUM 9.3 mg/dL (8.5-10.1); CHLORIDE 104 mmol/L (98-107); CO2 28 mmol/L (21-32); CREATININE 1.1 mg/dL (0.55-1.3); GLUCOSE,RANDOM 150 mg/dL (74-106); SGOT/AST 15 U/L (15-37); SGPT/ALT 17 U/L (13-61); SODIUM 142 mmol/L (136-145); TOT PROT 6.8 g/dl (6.4-8.2)
--- NOTE | 2018-02-20 19:01 | PN ---
Progress Note, Physician History of Present Illness: doing well - Current Medication List Current Medications: Active Medications Acetaminophen (Tylenol -) 650 mg PO Q6H PRN PRN Reason: FEVER Amlodipine Besylate (Norvasc -) 5 mg PO HS [facility] Last Admin: 02/19/18 21:35 Dose: 5 mg Atorvastatin Calcium (Lipitor -) 40 mg PO HS [facility] Last Admin: 02/19/18 21:35 Dose: 40 mg Gabapentin (Neurontin -) 300 mg PO DAILY [facility] Last Admin: 02/20/18 09:33 Dose: 300 mg Heparin Sodium (Porcine) (Heparin -) 5,000 unit SQ BID [facility] Last Admin: 02/20/18 09:32 Dose: 5,000 unit Clindamycin Phosphate (Cleocin 300 Mg Premix Ivpb) 300 mg in 50 mls @ 100 mls/ hr IVPB Q8H-IV [facility]; Protocol Last Admin: 02/20/18 17:25 Dose: 100 mls/hr Insulin Aspart (Novolog Mix 70/30 Vial) 26 units SQ HS [facility] Last Admin: 02/19/18 21:35 Dose: 26 units Insulin Aspart (Novolog Mix 70/30 Vial) 40 units SQ AM [facility] Last Admin: 02/20/18 06:40 Dose: 40 units Insulin Aspart (Novolog Vial Sliding Scale -) 1 vial SQ ACHS [facility]; Protocol Last Admin: 02/20/18 17:19 Dose: 8 units Losartan Potassium (Cozaar -) 100 mg PO DAILY [facility] Last Admin: 02/20/18 09:33 Dose: 100 mg Metformin HCl (Glucophage -) 500 mg PO DAILY@0700 [facility] Last Admin: 02/20/18 06:35 Dose: 500 mg Oxycodone HCl (Roxicodone -) 10 mg PO Q6H PRN PRN Reason: PAIN LEVEL 4 - 6 Last Admin: 02/18/18 16:57 Dose: 10 mg Sitagliptin Phosphate (Januvia -) 100 mg PO DAILY@0700 [facility] Last Admin: 02/20/18 06:35 Dose: 100 mg - Objective Vital Signs: Vital Signs Temperature 98.5 F 02/20/18 14:35 Pulse Rate 93 H 02/20/18 14:35 Respiratory Rate 16 02/20/18 14:35 Blood Pressure 143/72 02/20/18 14:35 O2 Sat by Pulse Oximetry (%) 99 02/17/18 20:08 Constitutional: Yes: No Distress HENT: Yes: Atraumatic Neck: Yes: Supple Cardiovascular: Yes: Regular Rate and Rhythm Respiratory: Yes: CTA Bilaterally Gastrointestinal: Yes: Normal Bowel Sounds Extremities: Yes: Other (rlex cellulitis resolving) Edema: Yes Edema: RLE: Trace Peripheral Pulses WNL: Yes Neurological: Yes: Alert, Oriented Labs: CBC, BMP 02/20/18 14:50 02/20/18 14:50 INR, PTT INR 1.03 (0.83-1.09) 02/17/18 17:23 Problem List - Problems (1) Cellulitis of right lower leg Assessment/Plan: iv abx id on board..need to know when to switch to po Code(s): L03.115 - CELLULITIS OF RIGHT LOWER LIMB (2) HTN (hypertension) Assessment/Plan: on meds stable Code(s): I10 - ESSENTIAL (PRIMARY) HYPERTENSION (3) HLD (hyperlipidemia) Assessment/Plan: on meds stable Code(s): E78.5 - HYPERLIPIDEMIA, UNSPECIFIED (4) Diabetes Assessment/Plan: on meds bgms Code(s): E11.9 - TYPE 2 DIABETES MELLITUS WITHOUT COMPLICATIONS
[2018-02-20] MEDS: amLODIPine BESYLATE 5 MG TABLET (FP) PO SCH (21:48)
[2018-02-20] MEDS: ATORVASTATIN CA 40 MG TABLET (FP) PO SCH (21:48)
[2018-02-21] MEDS ORDERED: PT OWN MED DRAWER 7, Y5N ONE (02:32)
[2018-02-21] MEDS: CLINDAMYCIN 300 MG PREMIX IVPB 300 MG/50 ML BAG IVPB SCH ×2 (02:36→09:48)
[2018-02-21] MEDS: INSULIN SLIDING SCALE (NOVOLOG) 1 VIAL SQ SCH ×4 (06:41→21:56)
[2018-02-21] MEDS: sitaGLIPtin PHOSPHATE 100 MG TABLET (FP) PO SCH (06:41)
[2018-02-21] MEDS: INSULIN (NOVOLOG MIX 70/30) 100 UNITS/ML MDV SQ SCH ×2 (06:41→21:55)
[2018-02-21] MEDS: metFORMIN HCL 500 MG TABLET (FP) PO SCH (06:42)
[2018-02-21] MEDS ORDERED: INSULIN (NOVOLOG) ASPART 100 UNITS/ML 10ML VIAL ONE ×3 (06:45→21:39)
[2018-02-21] MEDS: HEPARIN NA (PORCINE) 5,000 UNITS/ML 1ML VIAL SQ SCH ×2 (09:52→21:57)
[2018-02-21] MEDS: LOSARTAN POTASSIUM 50 MG TABLET (FP) PO SCH (09:52)
[2018-02-21] MEDS: GABAPENTIN 300 MG CAPSULE (FP) PO SCH (09:52)
--- NOTE | 2018-02-21 16:59 | PN ---
Progress Note, Physician History of Present Illness: Pt is alert. Denies current RLE pain. Has been tolerating antibiotics, afebrile. Wound culture results noted. - Current Medication List Current Medications: Active Medications Acetaminophen (Tylenol -) 650 mg PO Q6H PRN PRN Reason: FEVER Amlodipine Besylate (Norvasc -) 5 mg PO HS [facility] Last Admin: 02/20/18 21:48 Dose: 5 mg Atorvastatin Calcium (Lipitor -) 40 mg PO HS [facility] Last Admin: 02/20/18 21:48 Dose: 40 mg Gabapentin (Neurontin -) 300 mg PO DAILY [facility] Last Admin: 02/21/18 09:52 Dose: 300 mg Heparin Sodium (Porcine) (Heparin -) 5,000 unit SQ BID [facility] Last Admin: 02/21/18 09:52 Dose: 5,000 unit Clindamycin Phosphate (Cleocin 300 Mg Premix Ivpb) 300 mg in 50 mls @ 100 mls/ hr IVPB Q8H-IV [facility]; Protocol Last Admin: 02/21/18 09:48 Dose: 100 mls/hr Insulin Aspart (Novolog Mix 70/30 Vial) 26 units SQ HS [facility] Last Admin: 02/20/18 21:49 Dose: 26 units Insulin Aspart (Novolog Mix 70/30 Vial) 40 units SQ AM [facility] Last Admin: 02/21/18 06:41 Dose: 40 units Insulin Aspart (Novolog Vial Sliding Scale -) 1 vial SQ ACHS [facility]; Protocol Last Admin: 02/21/18 12:27 Dose: Not Given Losartan Potassium (Cozaar -) 100 mg PO DAILY [facility] Last Admin: 02/21/18 09:52 Dose: 100 mg Metformin HCl (Glucophage -) 500 mg PO DAILY@0700 [facility] Last Admin: 02/21/18 06:42 Dose: 500 mg Sitagliptin Phosphate (Januvia -) 100 mg PO DAILY@0700 [facility] Last Admin: 02/21/18 06:41 Dose: 100 mg - Objective Vital Signs: Vital Signs Temperature 97.4 F L 02/21/18 03:37 Pulse Rate 87 02/21/18 10:00 Respiratory Rate 20 02/21/18 10:00 Blood Pressure 140/70 02/21/18 10:00 O2 Sat by Pulse Oximetry (%) 99 02/17/18 20:08 Constitutional: Yes: No Distress, Calm Cardiovascular: Yes: Regular Rate and Rhythm Respiratory: Yes: CTA Bilaterally Gastrointestinal: Yes: Normal Bowel Sounds, Soft, Abdomen, Obese Genitourinary: Yes: WNL Integumentary: Yes: Erythema (RLE erythema/induration/mild warmth and tenderness , no fluctuance/drainage noted) Neurological: Yes: Alert, Oriented Labs: CBC, BMP 02/20/18 14:50 02/20/18 14:50 INR, PTT INR 1.03 (0.83-1.09) 02/17/18 17:23 Microbiology 02/17/18 06:40 Drainage (Swab) Gram Stain - Final 02/17/18 06:40 Drainage (Swab) Wound Culture - Final Staphylococcus Epidermidis Mr S Aureus 02/17/18 17:20 Blood - Peripheral Venous Blood Culture - Preliminary NO GROWTH OBTAINED AFTER 72 HOURS, INCUBATION TO CONTINUE FOR 2 DAYS. 02/17/18 17:23 Blood - Peripheral Venous Blood Culture - Preliminary NO GROWTH OBTAINED AFTER 72 HOURS, INCUBATION TO CONTINUE FOR 2 DAYS. Assessment/Plan Rt leg cellulitis -- still with some induration -- wound culture final results noted: MRSA, resistant to clindamycin/bactrim/ tetracycline -- d/c Clindamycin, start IV Vancomycin for now, monitor renal function -- continue monitor site
[2018-02-21] MEDS ORDERED: VANCOMYCIN 1,250 MG in DEXTROSE 5%-WATER - 250 ML IVPB SCH (18:00)
--- NOTE | 2018-02-21 20:33 | PN ---
Progress Note, Physician History of Present Illness: doing well - Current Medication List Current Medications: Active Medications Acetaminophen (Tylenol -) 650 mg PO Q6H PRN PRN Reason: FEVER Amlodipine Besylate (Norvasc -) 5 mg PO HS [facility] Last Admin: 02/20/18 21:48 Dose: 5 mg Atorvastatin Calcium (Lipitor -) 40 mg PO HS [facility] Last Admin: 02/20/18 21:48 Dose: 40 mg Gabapentin (Neurontin -) 300 mg PO DAILY [facility] Last Admin: 02/21/18 09:52 Dose: 300 mg Heparin Sodium (Porcine) (Heparin -) 5,000 unit SQ BID [facility] Last Admin: 02/21/18 09:52 Dose: 5,000 unit Vancomycin HCl 1,250 mg/ (Dextrose) 250 mls @ 250 mls/2 hr IVPB DAILY@1800 [facility] ; Protocol Last Admin: 02/21/18 17:36 Dose: 250 mls/2 hr Insulin Aspart (Novolog Mix 70/30 Vial) 26 units SQ HS [facility] Last Admin: 02/20/18 21:49 Dose: 26 units Insulin Aspart (Novolog Mix 70/30 Vial) 40 units SQ AM [facility] Last Admin: 02/21/18 06:41 Dose: 40 units Insulin Aspart (Novolog Vial Sliding Scale -) 1 vial SQ ACHS [facility]; Protocol Last Admin: 02/21/18 17:36 Dose: 6 units Losartan Potassium (Cozaar -) 100 mg PO DAILY [facility] Last Admin: 02/21/18 09:52 Dose: 100 mg Metformin HCl (Glucophage -) 500 mg PO DAILY@0700 [facility] Last Admin: 02/21/18 06:42 Dose: 500 mg Sitagliptin Phosphate (Januvia -) 100 mg PO DAILY@0700 [facility] Last Admin: 02/21/18 06:41 Dose: 100 mg - Objective Vital Signs: Vital Signs Temperature 97.7 F 02/21/18 19:24 Pulse Rate 78 02/21/18 19:24 Respiratory Rate 20 02/21/18 19:24 Blood Pressure 150/70 02/21/18 19:24 O2 Sat by Pulse Oximetry (%) 99 02/17/18 20:08 Constitutional: Yes: No Distress HENT: Yes: Atraumatic Neck: Yes: Supple Cardiovascular: Yes: Regular Rate and Rhythm Respiratory: Yes: CTA Bilaterally Gastrointestinal: Yes: Normal Bowel Sounds Extremities: Yes: Other (R clive cellulitis...resolving but leg still warm) Labs: CBC, BMP 02/20/18 14:50 02/20/18 14:50 INR, PTT INR 1.03 (0.83-1.09) 02/17/18 17:23 Problem List - Problems (1) Cellulitis of right lower leg Assessment/Plan: iv abx depending upon sensitivity Code(s): L03.115 - CELLULITIS OF RIGHT LOWER LIMB (2) HTN (hypertension) Assessment/Plan: on meds stable Code(s): I10 - ESSENTIAL (PRIMARY) HYPERTENSION (3) HLD (hyperlipidemia) Assessment/Plan: on meds stable Code(s): E78.5 - HYPERLIPIDEMIA, UNSPECIFIED (4) Diabetes Assessment/Plan: on meds bgms Code(s): E11.9 - TYPE 2 DIABETES MELLITUS WITHOUT COMPLICATIONS
[2018-02-21] MEDS: ATORVASTATIN CA 40 MG TABLET (FP) PO SCH (21:58)
[2018-02-21] MEDS: amLODIPine BESYLATE 5 MG TABLET (FP) PO SCH (21:58)
[2018-02-22] MEDS: metFORMIN HCL 500 MG TABLET (FP) PO SCH (06:10)
[2018-02-22] MEDS: sitaGLIPtin PHOSPHATE 100 MG TABLET (FP) PO SCH (06:10)
[2018-02-22] MEDS: INSULIN SLIDING SCALE (NOVOLOG) 1 VIAL SQ SCH ×2 (06:11→12:00)
[2018-02-22] MEDS: INSULIN (NOVOLOG MIX 70/30) 100 UNITS/ML MDV SQ SCH (06:11)
[2018-02-22] MEDS ORDERED: INSULIN (NOVOLOG MIX 70/30) 100 UNITS/ML MDV SQ ONE (06:34)
--- NOTE | 2018-02-22 10:08 | PN ---
Progress Note, Physician History of Present Illness: leg starting to do well swelling and redness has decreased patients mrsa resistant to oral abx vanco started - Current Medication List Current Medications: Active Medications Acetaminophen (Tylenol -) 650 mg PO Q6H PRN PRN Reason: FEVER Amlodipine Besylate (Norvasc -) 5 mg PO HS [facility] Last Admin: 02/21/18 21:58 Dose: 5 mg Atorvastatin Calcium (Lipitor -) 40 mg PO HS [facility] Last Admin: 02/21/18 21:58 Dose: 40 mg Gabapentin (Neurontin -) 300 mg PO DAILY [facility] Last Admin: 02/21/18 09:52 Dose: 300 mg Heparin Sodium (Porcine) (Heparin -) 5,000 unit SQ BID [facility] Last Admin: 02/21/18 21:57 Dose: 5,000 unit Vancomycin HCl 1,250 mg/ (Dextrose) 250 mls @ 250 mls/2 hr IVPB DAILY@1800 [facility] ; Protocol Last Admin: 02/21/18 17:36 Dose: 250 mls/2 hr Insulin Aspart (Novolog Mix 70/30 Vial) 26 units SQ HS [facility] Last Admin: 02/21/18 21:55 Dose: 26 units Insulin Aspart (Novolog Mix 70/30 Vial) 40 units SQ AM [facility] Last Admin: 02/22/18 06:11 Dose: 40 units Insulin Aspart (Novolog Vial Sliding Scale -) 1 vial SQ ACHS [facility]; Protocol Last Admin: 02/22/18 06:11 Dose: 2 units Losartan Potassium (Cozaar -) 100 mg PO DAILY [facility] Last Admin: 02/21/18 09:52 Dose: 100 mg Metformin HCl (Glucophage -) 500 mg PO DAILY@0700 [facility] Last Admin: 02/22/18 06:10 Dose: 500 mg Sitagliptin Phosphate (Januvia -) 100 mg PO DAILY@0700 [facility] Last Admin: 02/22/18 06:10 Dose: 100 mg - Objective Vital Signs: Vital Signs Temperature 98.4 F 02/22/18 06:00 Pulse Rate 90 02/22/18 06:00 Respiratory Rate 20 02/21/18 19:24 Blood Pressure 153/72 02/22/18 06:00 O2 Sat by Pulse Oximetry (%) 99 02/17/18 20:08 Constitutional: Yes: No Distress, Calm Cardiovascular: Yes: Regular Rate and Rhythm Respiratory: Yes: Regular, CTA Bilaterally Gastrointestinal: Yes: Normal Bowel Sounds, Soft Musculoskeletal: Yes: WNL Extremities: Yes: Other Neurological: Yes: Alert, Oriented Psychiatric: Yes: Alert, Oriented Labs: CBC, BMP 02/20/18 14:50 02/20/18 14:50 INR, PTT INR 1.03 (0.83-1.09) 02/17/18 17:23 Assessment/Plan Problem List - Problems (1) Cellulitis of right lower leg Code(s): L03.115 - CELLULITIS OF RIGHT LOWER LIMB (2) HTN (hypertension) Code(s): I10 - ESSENTIAL (PRIMARY) HYPERTENSION (3) HLD (hyperlipidemia) Code(s): E78.5 - HYPERLIPIDEMIA, UNSPECIFIED 4 mrsa of the leg wound plan continue vanco rest as per the team
[2018-02-22] MEDS: GABAPENTIN 300 MG CAPSULE (FP) PO SCH (10:10)
[2018-02-22] MEDS: HEPARIN NA (PORCINE) 5,000 UNITS/ML 1ML VIAL SQ SCH (10:10)
[2018-02-22] MEDS: LOSARTAN POTASSIUM 50 MG TABLET (FP) PO SCH (10:11)
--- NOTE | 2018-02-22 14:06 | PN ---
Progress Note, Physician - Current Medication List Current Medications: Active Medications Acetaminophen (Tylenol -) 650 mg PO Q6H PRN PRN Reason: FEVER Amlodipine Besylate (Norvasc -) 5 mg PO HS [facility] Last Admin: 02/21/18 21:58 Dose: 5 mg Atorvastatin Calcium (Lipitor -) 40 mg PO HS [facility] Last Admin: 02/21/18 21:58 Dose: 40 mg Gabapentin (Neurontin -) 300 mg PO DAILY [facility] Last Admin: 02/22/18 10:10 Dose: 300 mg Heparin Sodium (Porcine) (Heparin -) 5,000 unit SQ BID [facility] Last Admin: 02/22/18 10:10 Dose: 5,000 unit Vancomycin HCl 1,250 mg/ (Dextrose) 250 mls @ 250 mls/2 hr IVPB DAILY@1800 [facility] ; Protocol Last Admin: 02/21/18 17:36 Dose: 250 mls/2 hr Insulin Aspart (Novolog Mix 70/30 Vial) 26 units SQ HS [facility] Last Admin: 02/21/18 21:55 Dose: 26 units Insulin Aspart (Novolog Mix 70/30 Vial) 40 units SQ AM [facility] Last Admin: 02/22/18 06:11 Dose: 40 units Insulin Aspart (Novolog Vial Sliding Scale -) 1 vial SQ [facility]; Protocol Last Admin: 02/22/18 12:00 Dose: Not Given Losartan Potassium (Cozaar -) 100 mg PO DAILY [facility] Last Admin: 02/22/18 10:11 Dose: 100 mg Metformin HCl (Glucophage -) 500 mg PO DAILY@0700 [facility] Last Admin: 02/22/18 06:10 Dose: 500 mg Sitagliptin Phosphate (Januvia -) 100 mg PO DAILY@0700 [facility] Last Admin: 02/22/18 06:10 Dose: 100 mg - Objective Vital Signs: Vital Signs Temperature 98.4 F 02/22/18 06:00 Pulse Rate 78 02/22/18 10:00 Respiratory Rate 18 02/22/18 10:00 Blood Pressure 140/66 02/22/18 10:00 O2 Sat by Pulse Oximetry (%) 99 02/17/18 20:08 Constitutional: Yes: No Distress HENT: Yes: Atraumatic Neck: Yes: Supple Cardiovascular: Yes: Regular Rate and Rhythm Respiratory: Yes: CTA Bilaterally Gastrointestinal: Yes: Normal Bowel Sounds Extremities: Yes: Other (R NADEEN CELLULITIS) Peripheral Pulses WNL: Yes Neurological: Yes: Alert, Oriented Labs: CBC, BMP 02/20/18 14:50 02/20/18 14:50 INR, PTT INR 1.03 (0.83-1.09) 02/17/18 17:23 Problem List - Problems (1) Cellulitis of right lower leg Code(s): L03.115 - CELLULITIS OF RIGHT LOWER LIMB (2) HTN (hypertension) Code(s): I10 - ESSENTIAL (PRIMARY) HYPERTENSION (3) HLD (hyperlipidemia) Code(s): E78.5 - HYPERLIPIDEMIA, UNSPECIFIED (4) Diabetes Code(s): E11.9 - TYPE 2 DIABETES MELLITUS WITHOUT COMPLICATIONS
--- NOTE | 2018-02-22 14:13 | DS ---
Physical Examination Vital Signs: Vital Signs Temperature 98.4 F 02/22/18 06:00 Pulse Rate 78 02/22/18 10:00 Respiratory Rate 18 02/22/18 10:00 Blood Pressure 140/66 02/22/18 10:00 O2 Sat by Pulse Oximetry (%) 99 02/17/18 20:08 Labs: CBC, BMP 02/20/18 14:50 02/20/18 14:50 Discharge Summary Reason For Visit: CELLULITIS OF RIGHT LOWER LEG Current Active Problems Cellulitis of right lower leg (Acute) Diabetes (Acute) HLD (hyperlipidemia) (Acute) HTN (hypertension) (Acute) Condition: Guarded - Instructions Referrals: Lyubov Boyd MD [Primary Care Provider] - - Home Medications Comprehensive Discharge Medication List: Ambulatory Orders Amlodipine Besylate 5 mg PO HS 02/17/18 Amlodipine Besylate 10 mg PO AM 02/17/18 Atorvastatin Ca [Lipitor] 40 mg PO HS 02/17/18 Gabapentin 300 mg PO DAILY 02/17/18 Insulin Aspart Prot/Insuln Asp [Novolog Mix 70-30 Flexpen Syrn] 26 unit SQ HS Insulin Aspart Prot/Insuln Asp [Novolog Mix 70-30 Flexpen Syrn] 40 unit SQ AM Losartan Potassium 100 mg PO DAILY 02/17/18 Sitagliptin Phosphate [Januvia] 100 mg PO DAILY 02/17/18 metFORMIN HCL [Metformin HCl] 500 mg PO DAILY 02/17/18 Linezolid 600 mg PO BID #10 tablet 02/22/18 d/w id dc home on po linezolid
[2018-02-22 14:59] VITALS: BP 145/71; PULSE 89; TEMP 98
== END 2018-02-22 16:56 | disposition home or self-care (01) | DRG 603 ==
LOC: JER 15:01 → JERBED 16:57 → J6S 21:11
PROVIDERS: ADMIT Internal Medicine; ATTEND Internal Medicine
DX: L03.115 Cellulitis of right lower limb (principal); L97.918 Non-pressure chronic ulcer of unspecified part of right lower leg with other specified severity; B95.7 Other staphylococcus as the cause of diseases classified elsewhere; I10 Essential (primary) hypertension; E78.5 Hyperlipidemia, unspecified; E11.622 Type 2 diabetes mellitus with other skin ulcer
CPT/HCPCS: 36415; 71045-TC-FY; 73590-TC-RT-FY; 73630-TC-RT-FY; 80053; 82947; 82962; 83605; 84484; 85025; 85610; 86850; 86900; 86901; 87040; 87070; 87186; 87205; 90688; 90732; 93005; 93010; 93970-TC; 99283-25; G0008; G0009; J1644; J7030

== ENCOUNTER 2018-08-11 19:18 | Emergency (ER) | payer OTHER ==
[2018-08-11] MEDS ORDERED: diphenhydrAMINE HCL 25 MG CAPSULE (FP) PO ONE ×2 (19:41→19:55)
[2018-08-11] MEDS ORDERED: predniSONE 20 MG TABLET (UD) PO ONE (19:41)
[2018-08-11] MEDS ORDERED: RANITIDINE HCL 150 MG TABLET (FP) PO ONE (19:41)
--- NOTE | 2018-08-11 19:41 | PDOC ---
Rapid Medical Evaluation Medical Evaluation: Allergies Allergy/AdvReac Type Severity Reaction Status Date / Time No Known Allergies Allergy Verified 02/17/18 15:13 I have performed a brief in-person evaluation of this patient. The patient presents with a chief complaint of: rash x 1 month, worsening past 3 days; mentions she was switched from atenolol to metoprolol around a month ago , but has taken metoprolol in the past without reaction; took Claritin his AM Pertinent physical exam findings: Diffuse urticarial rash I have ordered the following: Benadryl, prednisone, Zantac The patient will proceed to the ED for further evaluation. 08/11/18 19:35
[2018-08-11 19:47] VITALS: BP 180/77; PULSE 91; TEMP 98; BMI 32.1
[2018-08-11] MEDS ORDERED: RANITIDINE HCL 150 MG TABLET (FP) ONE (19:55)
[2018-08-11] MEDS ORDERED: predniSONE 20 MG TABLET (UD) ONE (19:55)
--- NOTE | 2018-08-11 21:48 | PDOC ---
History of Present Illness - General Chief Complaint: Rash Stated Complaint: ALLERGIC REACTION Time Seen by Provider: 08/11/18 19:35 - History of Present Illness Initial Comments: 08/11/18 21:42 63-year-old female with a past medical history significant for diabetes hypertension and dyslipidemia presents for evaluation of rash times one month increasing in severity over the last 3 days. No systemic symptoms. Past History - Past Medical History Allergies/Adverse Reactions: Allergies Allergy/AdvReac Type Severity Reaction Status Date / Time No Known Allergies Allergy Verified 08/11/18 19:43 Home Medications: Ambulatory Orders Amlodipine Besylate 5 mg PO HS 02/17/18 Amlodipine Besylate 10 mg PO AM 02/17/18 Atorvastatin Ca [Lipitor] 40 mg PO HS 02/17/18 Gabapentin 300 mg PO DAILY 02/17/18 Insulin Aspart Prot/Insuln Asp [Novolog Mix 70-30 Flexpen Syrn] 26 unit SQ HS Insulin Aspart Prot/Insuln Asp [Novolog Mix 70-30 Flexpen Syrn] 40 unit SQ AM Losartan Potassium 100 mg PO DAILY 02/17/18 Sitagliptin Phosphate [Januvia] 100 mg PO DAILY 02/17/18 metFORMIN HCL [Metformin HCl] 500 mg PO DAILY 02/17/18 Linezolid 600 mg PO BID #10 tablet 02/22/18 Methylprednisolone [Medrol Dose Dimitri] 4 mg PO ASDIR #21 tablet 08/11/18 Permethrin 5% Topical Cream [Elimite -] 1 applic TP ONCE #1 tube 08/11/18 Cardiac Disorders: Yes COPD: No Diabetes: Yes (on insulin) HTN: Yes Hypercholesterolemia: Yes - Suicide/Smoking/Psychosocial Hx Smoking History: Never smoked Have you smoked in the past 12 months: No Information on smoking cessation initiated: No Hx Alcohol Use: No Drug/Substance Use Hx: No Hx Substance Use Treatment: No Review of Systems - Review of Systems Constitutional: No: Fever Integumentary: Yes: Pruritus, Rash *Physical Exam - Vital Signs Last Vital Signs Temp Pulse Resp BP Pulse Ox 98.0 F 91 H 16 180/77 H 100 08/11/18 19:40 08/11/18 19:40 08/11/18 19:40 08/11/18 19:40 08/11/18 19:40 - Physical Exam Comments: 08/11/18 21:44 HEAD: NC/AT EYES: Conjuntiva clear MS: Full ROM in all joints without edema NEUROLOGIC: No gross sensory or motor deficits, NVID SKIN: Normal color and temperature is diffuse maculopapular rash with interdigital involvement of the hands and raised wheals on the left shoulder. Moderate Sedation - Procedure Monitoring Vital Signs: Procedure Monitoring Vital Signs Temperature 98.0 F 08/11/18 19:40 Pulse Rate 91 H 08/11/18 19:40 Respiratory Rate 16 08/11/18 19:40 Blood Pressure 180/77 H 08/11/18 19:40 O2 Sat by Pulse Oximetry (%) 100 08/11/18 19:40 ED Treatment Course - Medications Given in the ED: ED Medications Discontinued Medications Generic Name Dose Route Start Last Admin Trade Name Shakaq PRN Reason Stop Dose Admin Diphenhydramine HCl 50 mg 08/11/18 19:41 08/11/18 19:58 Benadryl - PO 08/11/18 19:42 50 mg ONCE ONE Administration Prednisone 60 mg 08/11/18 19:41 08/11/18 19:58 Deltasone - PO 08/11/18 19:42 60 mg ONCE ONE Administration Ranitidine HCl 150 mg 08/11/18 19:41 08/11/18 19:58 Zantac - PO 08/11/18 19:42 150 mg ONCE ONE Administration Medical Decision Making - Medical Decision Making 08/11/18 21:46 This is scabies with an ALLERGIC component. I will treat her with a Medrol Dosepak and Elimite. *DC/Admit/Observation/Transfer Diagnosis at time of Disposition: Scabies, Rash due to allergy - Discharge Dispostion Disposition: HOME Condition at time of disposition: Stable Decision to Admit order: No - Prescriptions Prescriptions: Methylprednisolone [Medrol Dose Dimitri] 4 mg PO ASDIR #21 tablet Permethrin 5% Topical Cream [Elimite -] 1 applic TP ONCE #1 tube - Referrals Referrals: Lyubov Boyd MD [Primary Care Provider] - - Patient Instructions Printed Discharge Instructions: Scabies, DI for Scabies Additional Instructions: This is a rash due to scabies. Please use the Elimite as directed and repeat the process in 7 days. There is also an ALLERGIC component which is why I prescribed the steroid pack. He may take Benadryl as directed if needed for itching. Return to the emergency room for worsening symptoms and follow-up with your primary care physician in one to 2 days for further evaluation and treatment options. - Post Discharge Activity
== END 2018-08-11 22:00 | disposition home or self-care (01) ==
LOC: JERFT 19:18 → JER 19:18 → JERFT 22:00
DX: B86 Scabies (principal); L27.0 Generalized skin eruption due to drugs and medicaments taken internally; T50.995A Adverse effect of other drugs, medicaments and biological substances, initial encounter; Y92.038 Other place in apartment as the place of occurrence of the external cause; I10 Essential (primary) hypertension; Z79.4 Long term (current) use of insulin; E11.9 Type 2 diabetes mellitus without complications; E78.5 Hyperlipidemia, unspecified
CPT/HCPCS: 99281-25

== ENCOUNTER 2019-03-22 13:21 | Emergency (ER) | payer MEDICARE, OTHER ==
[2019-03-22 13:26] VITALS: BMI 31.1
--- NOTE | 2019-03-22 13:30 | PDOC ---
Rapid Medical Evaluation Time Seen by Provider: 03/22/19 13:22 Medical Evaluation: Allergies Allergy/AdvReac Type Severity Reaction Status Date / Time No Known Allergies Allergy Verified 08/11/18 19:43 03/22/19 13:23 I have performed a brief in-person evaluation of this patient. The patient presents with a chief complaint of: L flank pain s/p "slip" and fall in bath tub this am, no head injury Pertinent physical exam findings:Elevated BP, defer rest of exam to ED provider I have ordered the following:nothing The patient will proceed to the ED for further evaluation. Discharge Disposition - Diagnosis Fall Qualifiers: Encounter type: initial encounter Qualified Code(s): W19.XXXA - Unspecified fall, initial encounter - Referrals - Patient Instructions - Post Discharge Activity
[2019-03-22] MEDS ORDERED: ACETAMINOPHEN 325 MG TABLET (FP) PO ONE (13:58)
--- NOTE | 2019-03-22 13:58 | PDOC ---
History of Present Illness - General Chief Complaint: Injury Stated Complaint: FALL Time Seen by Provider: 03/22/19 13:22 - History of Present Illness Initial Comments: 03/22/19 13:58 64f with pmh of diabetes coming to the Ed after mechnical fall on her left side in the bathtub. She denies dizziness, chest pain, vertigo before she fell. No n/ v/d. Denies hitting her head, neck or LOC. Was able to ambulate with assistance after the fall. She didn't have time to take her metoprolol and losartan this morning. triage pressure is elevated in the 200's Past History - Past Medical History Allergies/Adverse Reactions: Allergies Allergy/AdvReac Type Severity Reaction Status Date / Time No Known Allergies Allergy Verified 03/22/19 13:26 Home Medications: Ambulatory Orders Amlodipine Besylate 5 mg PO HS 02/17/18 Atorvastatin Ca [Lipitor] 40 mg PO HS 02/17/18 Gabapentin 300 mg PO DAILY 02/17/18 Insulin Aspart Prot/Insuln Asp [Novolog Mix 70-30 Flexpen Syrn] 15 unit SQ HS Insulin Aspart Prot/Insuln Asp [Novolog Mix 70-30 Flexpen Syrn] 45 unit SQ AM Sitagliptin Phosphate [Januvia] 100 mg PO DAILY 02/17/18 metFORMIN HCL [Metformin HCl] 500 mg PO DAILY 02/17/18 Permethrin 5% Topical Cream [Elimite -] 1 applic TP ONCE #1 tube 08/11/18 Metoprolol Succinate 50 mg PO DAILY 03/22/19 Cardiac Disorders: Yes COPD: No Diabetes: Yes (on insulin) HTN: Yes Hypercholesterolemia: Yes - Psycho Social/Smoking Cessation Hx Smoking History: Never smoked Have you smoked in the past 12 months: No Hx Alcohol Use: No Drug/Substance Use Hx: No Hx Substance Use Treatment: No Review of Systems - Review of Systems Able to Perform ROS?: Yes Is the patient limited Malaysian proficient: No Constitutional: No: Symptoms Reported HEENTM: No: Symptoms Reported Respiratory: No: Symptoms reported Cardiac (ROS): No: Symptoms Reported ABD/GI: No: Symptoms Reported : No: Symptoms Reported Musculoskeletal: Yes: See HPI Integumentary: No: Symptoms Reported All Other Systems: Reviewed and Negative *Physical Exam - Vital Signs Last Vital Signs Temp Pulse Resp BP Pulse Ox 98 F 84 18 209/84 H 98 03/22/19 13:21 03/22/19 13:21 03/22/19 13:21 03/22/19 13:21 03/22/19 13:21 - Physical Exam General Appearance: Yes: Nourished, Appropriately Dressed. No: Apparent Distress HEENT: positive: EOMI, CAROLINE, Normal ENT Inspection Respiratory/Chest: positive: Lungs Clear, Normal Breath Sounds. negative: Chest Tender, Respiratory Distress Cardiovascular: positive: Regular Rhythm, Regular Rate, S1, S2 Gastrointestinal/Abdominal: positive: Normal Bowel Sounds, Flat, Soft. negative : Tender Musculoskeletal: positive: Other (tender over left rib/flank) Extremity: positive: Normal Capillary Refill, Normal Inspection, Normal Range of Motion Integumentary: positive: Normal Color, Dry, Warm Neurologic: positive: Fully Oriented, Alert, Normal Mood/Affect ED Treatment Course - LABORATORY CBC & Chemistry Diagram: 03/22/19 17:35 03/22/19 17:35 Medical Decision Making - Medical Decision Making 03/22/19 15:06 64f with pmh of diabetes coming to the Ed after mechnical fall on her left side in the bathtub. She denies dizziness, chest pain, vertigo before she fell. No n/ v/d. Bedside rapid fast negative for abdominal free fluid. Will obtain rib xray. Tylenol for pain and allow patient to take home dose of BP meds. 03/22/19 17:56 Patient vomited after given motrin for pain. Now abdmen is tender,. Will check labs and obtain ct abdomen with IV contrast. 03/22/19 21:[address]: Acute left ninth rib fracture posteriorly. The abdomen and pelvis demonstrate no CT evidence of acute pathology. Ok to dc. Pain level ok Discharge - Discharge Information Problems reviewed: Yes Clinical Impression/Diagnosis: Fall Qualifiers: Encounter type: initial encounter Qualified Code(s): W19.XXXA - Unspecified fall, initial encounter Condition: Improved Disposition: HOME - Admission No - Follow up/Referral - Patient Discharge Instructions Patient Printed Discharge Instructions: How to Prevent Falls Additional Instructions: Come back to the emergency department for any new, worsening or concerning symptom. Follow up with your primary care physician within the next 3-4 days. - Post Discharge Activity
[2019-03-22] MEDS ORDERED: ACETAMINOPHEN 325 MG TABLET (FP) ONE (14:19)
[2019-03-22] MEDS ORDERED: IBUPROFEN 600 MG TABLET (FP) PO ONE ×2 (16:42→16:48)
[2019-03-22] MEDS ORDERED: ONDANSETRON *ODT* 4 MG TABLET SL ONE (16:52)
[2019-03-22] MEDS ORDERED: ONDANSETRON *ODT* 4 MG TABLET ONE (16:56)
[2019-03-22] MEDS ORDERED: SODIUM CHLORIDE 0.9% 1000 ML INFUS.BAG IV ONE (17:18)
[2019-03-22] MEDS ORDERED: ACETAMINOPHEN 1000 MG/100 ML VIAL (NON FORMULARY) IVPB ONE (17:18)
[2019-03-22] MEDS ORDERED: ACETAMINOPHEN INJECTION 100 ML IVPB ONE (17:28)
[2019-03-22 18:02] LABS: BASO % 0.4 % (0-2.0); HEMATOCRIT 38.4 % (32.4-45.2); HEMOGLOBIN 12.4 GM/dL (10.7-15.3); LYMPH % 16.2 % (8-40); MCH 27.7 pg (25.7-33.7); MCHC 32.1 g/dl (32.0-36.0); MEAN CELL VOLUME 86.2 fl (80-96); MEAN PLT VOLUME 10.3 fl (7.5-11.1); MONO % 4.6 % (3.8-10.2); NEUT % 76.8 % (42.8-82.8); PLATELET COUNT 266 K/MM3 (134-434); RBC 4.46 M/mm3 (3.60-5.2); RDW 14.1 % (11.6-15.6); WHITE BLOOD COUNT 10.6 K/mm3 (4.0-10.0)
[2019-03-22 18:25] LABS: ALBUMIN 3.7 g/dl (3.4-5.0); BILIRUBIN,TOTAL 0.2 mg/dL (0.2-1); BLOOD UREA NITROGEN 20.9 mg/dL (7-18); CALCIUM 9.7 mg/dL (8.5-10.1); POTASSIUM 4.9 mmol/L (3.5-5.1); TOT PROT 7.4 g/dl (6.4-8.2)
--- NOTE | 2019-03-22 18:34 | PDOC ---
Attending Attestation - Resident Resident Name: Dereck Pope - ED Attending Attestation I have performed the following: I have examined & evaluated the patient, The case was reviewed & discussed with the resident, I agree w/resident's findings & plan, Exceptions are as noted - HPI HPI: 03/22/19 18:48 64 years old status post mechanical slip and fall landed on her left side complaining of left abdominal discomfort and left rib pain. Pain is persistent constant difficulty with moving worse with movement and ambulation associated with nausea vomiting no alleviating factors Insert my ROS statement - Physicial Exam PE: 03/22/19 18:48 Vitals: Triage Vital signs reviewed General Appearance: No acute distress, well nourished well developed, Neck: Supple; no Nucal rigidity Chest Wall: Left anterior ribs tender to palpation Cardiac: Regular rate and rhythym, no murmurs, no rubs, no gallops, Lungs: Clear to auscultation bilateral, good air movement bilaterally, Abdomen: Left upper quadrant tenderness to palpation extremities: Full range of motion to all extremities, no cyanosis, clubbing, or edema Skin: Warm and dry, no rashes or lesions, no rash, no petechiae Psych: Normal mood, normal affect - Medical Decision Making 03/22/19 18:49 Patient given p.o. pain medication and x-ray was ordered which demonstrated no read fractures Patient reevaluated persistent pain now with nausea one episode of vomiting repeat abdominal exam distiller in the left upper quadrant we will perform a CAT scan with IV contrast to better delineate etiology of patient's pain Dr. Marques to follow-up CAT scan and reassess
[2019-03-22] MEDS ORDERED: morphine CARPU-JECT 2 MG/1 ML DISP.SYRIN IVPUSH ONE (18:44)
[2019-03-22] MEDS ORDERED: MORPHINE SULFATE 2 MG/ML VIAL ONE (18:50)
[2019-03-22 21:46] VITALS: BP 170/84; PULSE 71; TEMP 97.3
== END 2019-03-22 21:35 | disposition home or self-care (01) ==
LOC: JER 13:21
PROC: 3E033NZ Introduction of Analgesics, Hypnotics, Sedatives into Peripheral Vein, Percutaneous Approach (ICD-10-PCS; principal; 2019-03-22)
PROC: 3E033NZ Introduction of Analgesics, Hypnotics, Sedatives into Peripheral Vein, Percutaneous Approach (ICD-10-PCS; 2019-03-22)
PROC: B246ZZZ Ultrasonography of Right and Left Heart (ICD-10-PCS; 2019-03-22)
PROC: BW40ZZZ Ultrasonography of Abdomen (ICD-10-PCS; 2019-03-22)
DX: S22.32XA Fracture of one rib, left side, initial encounter for closed fracture (principal); W18.2XXA Fall in (into) shower or empty bathtub, initial encounter; Y93.E1 Activity, personal bathing and showering; Y92.031 Bathroom in apartment as the place of occurrence of the external cause; Y99.8 Other external cause status; I10 Essential (primary) hypertension; E78.00 Pure hypercholesterolemia, unspecified; E11.9 Type 2 diabetes mellitus without complications; Z79.4 Long term (current) use of insulin
CPT/HCPCS: 36415; 71101-TC-LT-FY; 74177-TC; 76705-TC; 80048; 80053; 85025; 93308; 96374; 96375; 99284-25; J0131; Q0162